=== PATIENT | female | born 2000 | race Caucasian/White ===

== ENCOUNTER 2022-02-15 06:06 | Emergency (ER) | payer MEDICAID, OTHER ==
[~2022-02-15] VITALS: Ht 167.6 cm; Wt 82.7 kg
[2022-02-15 06:06] VITALS: BP 118/64
== END 2022-02-15 12:41 | disposition left against medical advice (07) ==
LOC: M ED 06:06
DX: Z53.21 Procedure and treatment not carried out due to patient leaving prior to being seen by health care provider (principal)

== ENCOUNTER → 2023-03-23 | Outpatient (CLI) | payer MEDICAID, SELFPAY ==
[2023-03-23 14:53] LABS: HEMATOCRIT 37.8 % (36.0-47.0); HEMOGLOBIN 12.7 g/dl (12.0-15.5); MEAN CORPUSCULAR HEMOGLOBIN 32.2 pg (27.0-33.0); MEAN CORPUSCULAR HGB CONC 33.6 g/dl (32.0-36.5); MEAN CORPUSCULAR VOLUME 95.9 fl (80.0-96.0); PLATELET COUNT, AUTOMATED 311 10^3/uL (150-450); RED BLOOD COUNT 3.94 10^6/uL (4.00-5.40); WHITE BLOOD COUNT 10.4 10^3/uL (4.0-10.0)
[2023-03-23 15:29] LABS: HIV 1&2 SCREEN NEGATIVE (NEGATIVE)
[2023-03-23 15:37] LABS: HEPATITIS C VIRUS ABY INDEX 0.13 INDEX (<0.8)
[2023-03-23 15:50] LABS: CHLAMYDIA DNA AMPLIFICATION NEGATIVE (NEGATIVE); GC DNA AMPLIFICATION NEGATIVE (NEGATIVE)
== END ==
LOC: M PLALAB 10:48
PROVIDERS: ATTEND Advanced Practice Midwife
DX: Z34.02 Encounter for supervision of normal first pregnancy, second trimester (principal)

== ENCOUNTER → 2023-04-08 | Outpatient (CLI) | payer MEDICAID, SELFPAY | LOC: M WHC 13:59 | PROVIDERS: ATTEND Advanced Practice Midwife | DX: O44.42 Low lying placenta NOS or without hemorrhage, second trimester (principal); O32.1XX0 Maternal care for breech presentation, not applicable or unspecified; Z3A.19 19 weeks gestation of pregnancy ==

== ENCOUNTER 2023-06-02 03:01 | Outpatient (CLI) | payer SELFPAY, OTHER, MEDICAID ==
[~2023-06-02] VITALS: Ht 162.6 cm; Wt 88.5 kg
[2023-06-02] MEDS ORDERED: HOME MED LIST COMPLETE! XX SCH (03:15)
[2023-06-02 03:20] VITALS: BP 126/79
[2023-06-02] MEDS ORDERED: LACTATED RINGER'S 1000 ML IV STA (03:50)
[2023-06-02] MEDS ORDERED: LR 1,000 ML IV SCH (03:50)
[2023-06-02 04:13] LABS: BASO # 0.1 10^3/uL (0.0-0.2); BASO % 0.5 % (0.0-1.0); EOS # 0.1 10^3/uL (0.0-0.5); EOS % 0.9 % (0.0-3.0); HEMATOCRIT 34.3 % (36.0-47.0); HEMOGLOBIN 11.9 g/dl (12.0-15.5); LYMPH # 2.1 10^3/uL (1.5-5.0); LYMPH % 16.9 % (24.0-44.0); MEAN CORPUSCULAR HEMOGLOBIN 32.9 pg (27.0-33.0); MEAN CORPUSCULAR HGB CONC 34.7 g/dl (32.0-36.5); MEAN CORPUSCULAR VOLUME 94.8 fl (80.0-96.0); MONO # 1.1 10^3/uL (0.0-0.8); MONO % 8.4 % (2.0-8.0); NEUTROPHILS # 9.2 10^3/uL (1.5-8.5); NEUTROPHILS % 72.8 % (36.0-66.0); PLATELET COUNT, AUTOMATED 328 10^3/uL (150-450); RED BLOOD COUNT 3.62 10^6/uL (4.00-5.40); WHITE BLOOD COUNT 12.6 10^3/uL (4.0-10.0)
[2023-06-02 04:35] LABS: LIPASE 18 U/L (12-53)
[2023-06-02 04:37] LABS: ALBUMIN 2.9 G/DL (3.2-5.2); ALKALINE PHOSPHATASE 91 U/L (46-116); ALT/SGPT 11 U/L (7.0-40); AST/SGOT 13 U/L (<34); BILIRUBIN,TOTAL 0.6 MG/DL (0.3-1.2); BLOOD UREA NITROGEN 10 MG/DL (9-23); CALCIUM LEVEL 8.4 MG/DL (8.5-10.1); CARBON DIOXIDE LEVEL 22 MMOL/L (20-31); CHLORIDE LEVEL 105 MMOL/L (98-107); CREATININE FOR GFR 0.48 MG/DL (0.55-1.30); GLOMERULAR FILTRATION RATE > 60.0 (>60); GLUCOSE, FASTING 81 MG/DL (60-100); POTASSIUM SERUM 3.9 MMOL/L (3.5-5.1); SODIUM LEVEL 137 MMOL/L (136-145); TOTAL PROTEIN 6.2 G/DL (5.7-8.2)
[2023-06-02] MEDS ORDERED: ONDA-83 PO ×2 (07:07)
[2023-06-02 07:08] LABS: AMPHETAMINES URINE REFLEX NEGATIVE (NEGATIVE); BARBITURATES URINE REFLEX NEGATIVE (NEGATIVE); BENZODIAZEPINES URINE REFLEX NEGATIVE (NEGATIVE); COCAINE METABOLITE URINE REFLE NEGATIVE (NEGATIVE); METHADONE URINE REFLEX NEGATIVE (NEGATIVE); OPIATES URINE REFLEX NEGATIVE (NEGATIVE); PHENCYCLIDINE URINE REFLEX NEGATIVE (NEGATIVE)
[2023-06-02 08:24] LABS: CANNABINOIDS URINE REFLEX PENDING CONFIRMATION (NEGATIVE)
[2023-06-05 04:07] LABS: Cannabinoid Positive (.); Carboxy THC Conf, MS, UR >300 ng/mL (Cutoff=10)
== END 2023-06-02 06:47 | disposition home or self-care (01) ==
LOC: M LDO 03:01
PROVIDERS: ATTEND Specialist
DX: O21.8 Other vomiting complicating pregnancy (principal); O44.42 Low lying placenta NOS or without hemorrhage, second trimester; Z3A.27 27 weeks gestation of pregnancy
CPT/HCPCS: 59025; 80053; 80307; 83690; 85025; G0463; G0480

== ENCOUNTER → 2023-06-04 | Outpatient (CLI) | payer MEDICAID ==
[~2023-06-04] MED LIST: ONDA-83 PO
[2023-06-04 16:32] LABS: HEMATOCRIT 34.2 % (36.0-47.0); HEMOGLOBIN 11.3 g/dl (12.0-15.5); MEAN CORPUSCULAR HEMOGLOBIN 32.5 pg (27.0-33.0); MEAN CORPUSCULAR VOLUME 98.3 fl (80.0-96.0); PLATELET COUNT, AUTOMATED 290 10^3/uL (150-450); RED BLOOD COUNT 3.48 10^6/uL (4.00-5.40); WHITE BLOOD COUNT 8.9 10^3/uL (4.0-10.0)
[2023-06-04 18:39] LABS: CHLAMYDIA DNA AMPLIFICATION NEGATIVE (NEGATIVE); GC DNA AMPLIFICATION NEGATIVE (NEGATIVE)
== END ==
LOC: M PLALAB 12:21
PROVIDERS: ATTEND Advanced Practice Midwife
DX: Z34.02 Encounter for supervision of normal first pregnancy, second trimester (principal)

== ENCOUNTER → 2023-06-22 | Outpatient (CLI) | payer MEDICAID | LOC: M RAD 14:35 | PROVIDERS: ATTEND Specialist | DX: O44.42 Low lying placenta NOS or without hemorrhage, second trimester (principal); Z3A.30 30 weeks gestation of pregnancy ==

== ENCOUNTER 2023-07-15 15:20 | Outpatient (CLI) | payer MEDICAID, OTHER ==
[~2023-07-15] VITALS: Ht 162.6 cm; Wt 91.3 kg
[2023-07-15 15:37] VITALS: BP 130/83
[2023-07-15] MEDS ORDERED: PRENTAB9 PO (15:40)
[2023-07-15] MEDS ORDERED: HOME MED LIST COMPLETE! XX SCH (15:45)
[2023-07-15 16:58] VITALS: BP 120/71
== END 2023-07-15 17:43 | disposition home or self-care (01) ==
LOC: M LDO 15:20
PROVIDERS: ATTEND Obstetrics & Gynecology
DX: O26.893 Other specified pregnancy related conditions, third trimester (principal); R10.2 Pelvic and perineal pain; Z3A.33 33 weeks gestation of pregnancy
CPT/HCPCS: 59025; G0463

== ENCOUNTER → 2023-08-03 | Outpatient (REF) | payer OTHER ==
[~2023-08-03] MED LIST changes: +PRENTAB9 PO
== END ==
LOC: M PLALAB 14:21
PROVIDERS: ATTEND Obstetrics & Gynecology
DX: Z36.89 Encounter for other specified antenatal screening (principal); Z3A.36 36 weeks gestation of pregnancy

== ENCOUNTER 2023-08-30 03:03 | Inpatient (IN) | payer OTHER ==
[2023-08-30] VITALS (11 sets, daily range): BP systolic 115–137; BP diastolic 59–73; O2SAT 99
[~2023-08-30] VITALS: Ht 165.1 cm; Wt 94.5 kg
[2023-08-30] MEDS ORDERED: OXYTOCIN 30UNITS IN 0.9% NaCl 500ML IV BAG As Ordered ONE (03:10)
[2023-08-30] MEDS: LACTATED RINGER'S 1000 ML IV STA (03:12)
[2023-08-30] MEDS ORDERED: OXYTOCIN INJ 10UNITS/ML 1ML VIAL IV PRN (03:15)
[2023-08-30] MEDS ORDERED: CARBOPROST TROMETHAMINE 250 MCG/ML AMP IM PRN (03:15)
[2023-08-30] MEDS ORDERED: METHYLERGONOVINE MALEATE 0.2MG/ML 1ML VIAL IM PRN (03:15)
[2023-08-30] MEDS ORDERED: LR 1,000 ML IV SCH (03:15)
[2023-08-30] MEDS ORDERED: TRANEXAMIC ACID INJection 1,000 MG in NS 100 ML IV PRN (03:15)
[2023-08-30] MEDS ORDERED: OXYTOCIN DRIP 30 UNITS in IV 1 EA IV PRN (03:15)
[2023-08-30] MEDS: OXYTOCIN INJ 10UNITS/ML 1ML VIAL IM PRN (04:04)
[2023-08-30] MEDS: LIDOCAINE 1% MDV 20ML VIAL INFIL PRN (04:04)
[2023-08-30 04:19] LABS: CORD GAS ABE V -9.3; CORD GAS HCO3 V 19.2 MMOL/L; CORD GAS O2 SAT V 40.4 %; CORD GAS PCO2 V 51.5 mmHg; CORD GAS PH V 7.19 UNITS; CORD GAS PO2 V 21.7 mmHg; CORD GAS SBC V 15.9 MMOL/L; CORD GAS TCO2 V 20.8 MMOL/L
[2023-08-30 04:25] LABS: CORD GAS ABE A -11.8; CORD GAS HCO3 A 19.7 MMOL/L; CORD GAS O2 SAT A 18.5 %; CORD GAS PCO2 A 70.8 mmHg; CORD GAS PH A 7.062 UNITS; CORD GAS PO2 A 15.9 mmHg; CORD GAS SBC A 13.8 MMOL/L; CORD GAS TCO2 A 21.9 MMOL/L
[2023-08-30] MEDS ORDERED: ACETAMINOPHEN TAB 650MG DOSE (2X325MG) PO PRN (04:35)
[2023-08-30] MEDS ORDERED: IBUPROFEN 600MG TAB PO PRN (04:35)
[2023-08-30] MEDS ORDERED: DOCUSATE SODIUM 100MG CAPSULE PO PRN (04:35)
[2023-08-30] MEDS ORDERED: RHOGAM 300MCG (1500IU) INJ IM SCH (04:35)
[2023-08-30] MEDS ORDERED: IBUPROFEN 800 MG TAB PO PRN (04:35)
[2023-08-30] MEDS ORDERED: ANUSOL HC CREAM 30GM TOP PRN (04:35)
[2023-08-30] MEDS: PRENATAL VITAMINS CHEWABLE TABLET PO SCH (08:41)
[2023-08-30] MEDS: DIBUCAINE 1% OINTMENT 30GM TOP PRN (08:42)
[2023-08-30] MEDS: ACETAMINOPHEN 500 MG TAB PO PRN (08:43)
[2023-08-31 06:00] VITALS: BP 99/50; O2SAT 98
[2023-09-01] MEDS ORDERED: MEASLES,MUMPS,RUBELLA VACCINE INJ (MMR-II) SC.IMMUN ONE (09:00)
== END 2023-08-31 17:39 | disposition home or self-care (01) | DRG 560 ==
LOC: M LDO 03:03 → M LDI 03:12 → M OBS 06:00
PROVIDERS: ADMIT Obstetrics & Gynecology; ATTEND Obstetrics & Gynecology
PROC: 10E0XZZ Delivery of Products of Conception, External Approach (ICD-10-PCS; principal; 2023-08-30)
PROC: 0HQ9XZZ Repair Perineum Skin, External Approach (ICD-10-PCS; 2023-08-30)
DX: O70.0 First degree perineal laceration during delivery (principal); Z37.0 Single live birth; Z3A.40 40 weeks gestation of pregnancy

== ENCOUNTER → 2024-09-22 | Outpatient (CLI) | payer OTHER | LOC: M OUTALCOH 08:05 | PROVIDERS: ATTEND Psychiatry & Neurology Psychiatry | DX: F12.10 Cannabis abuse, uncomplicated (principal); F14.10 Cocaine abuse, uncomplicated; F17.200 Nicotine dependence, unspecified, uncomplicated ==

== ENCOUNTER 2024-09-28 12:58 | Outpatient (RCR) | payer OTHER | END 2024-10-02 | LOC: M OUTALCOH 12:58 | PROVIDERS: ATTEND Psychiatry & Neurology Psychiatry | DX: F12.10 Cannabis abuse, uncomplicated (principal); F14.10 Cocaine abuse, uncomplicated; F17.200 Nicotine dependence, unspecified, uncomplicated ==

== ENCOUNTER 2024-10-12 12:03 | Outpatient (RCR) | payer OTHER | END 2024-11-01 | LOC: M OUTALCOH 12:03 | PROVIDERS: ATTEND Psychiatry & Neurology Psychiatry | DX: F12.10 Cannabis abuse, uncomplicated (principal); F14.10 Cocaine abuse, uncomplicated; F17.200 Nicotine dependence, unspecified, uncomplicated ==

== ENCOUNTER 2025-01-25 10:56 | Outpatient (RCR) | payer OTHER | END 2025-02-01 | LOC: M OUTALCOH 10:56 | PROVIDERS: ATTEND Psychiatry & Neurology Psychiatry | DX: F12.10 Cannabis abuse, uncomplicated (principal); F14.10 Cocaine abuse, uncomplicated; F17.200 Nicotine dependence, unspecified, uncomplicated ==

== ENCOUNTER 2025-03-01 10:56 | Outpatient (RCR) | payer OTHER | END 2025-03-04 | LOC: M OUTALCOH 10:56 | PROVIDERS: ATTEND Psychiatry & Neurology Psychiatry | DX: F12.10 Cannabis abuse, uncomplicated (principal); F14.10 Cocaine abuse, uncomplicated; F17.200 Nicotine dependence, unspecified, uncomplicated ==

== ENCOUNTER 2025-03-26 14:00 | Outpatient (RCR) | payer OTHER | END 2025-04-03 | LOC: M OUTALCOH 14:00 | PROVIDERS: ATTEND Psychiatry & Neurology Psychiatry | DX: F12.10 Cannabis abuse, uncomplicated (principal); F14.10 Cocaine abuse, uncomplicated; F17.200 Nicotine dependence, unspecified, uncomplicated ==